=== PATIENT | female | born 1945 | race Caucasian/White ===

== ENCOUNTER → 2017-11-10 10:14 | Outpatient (POV) | payer MEDICARE, SELFPAY ==
[2017-11-10 10:26] VITALS: BP 164/58; PULSE 61; RESP 20; TEMP 36.3; BMI 20.7
--- NOTE | 2017-11-10 11:21 | HMH.PAINSOAP ---
[facility] Pain Management SOAP Note Subjective:: Patient is a pleasant 72-year-old white female who presents today as a follow-up of her low back pain. She has low back pain secondary to degenerative disc disease of the lumbar spine and lumbar radiculopathy. She also has rheumatoid arthritis. Patient currently on Plavix long-term due to history of [place]. Patient unable to come off this for injective therapy. Patient is doing well on her current regimen of [place] 7.5 mg 1 4 times daily. She states that she has 80% relief from her medication. She was unable to take her diclofenac due to stomach issues. Patient currently taking MiraLAX daily in order to help with constipation. Denies any other side effects including respiratory depression and sleepiness. Patient's last urine drug screen was appropriate. Patient will go for urine drug screen today. Patient's Charleen #[id number] reviewed and appropriate. Objective:: Physical Exam General: Alert and oriented x3, no acute distress, pleasant and cooperative, on room air Lungs: Resps E/U, Symmetrical chest expansion Musculoskeletal: Flexion and extension of lumbar spine somewhat guarded secondary to pain, deep tendon reflexes normal, strength in upper and lower extremities [5/5], slightly antalgic gait noted Neurological: speech clear, strike out machine operator equal, no gross sensory deficits Assessment:: degenerative disc disease lumbar spine, lumbar radiculopathy, multi-joint pain with arthritis Plan:: At this time we will continue her [place] 7.5 mg 1 4 times daily due to the efficacy and lack of side effects. We will give her 2 months prescriptions. I spoke to Dr. Medina in regards to this and he agrees. Kaspar #[id number] reviewed and appropriate patient will forego her urine drug screen today. I also believe it would be advantageous for the patient to have a back brace. I will order her lumbar back brace for support. I believe that this may increase her ability to do ADLs and her functionality. Follow-up with this patient in 3 months Patient has been prescribed a controlled substance after being counseled on the medication, medication safety, and possible side effects. CHARLEEN report has been obtained and reviewed prior to prescription and found to be appropriate. Opioid contract was reviewed and signed by the patient, and that they have agreed to all of the terms set forth by our compliance program. This note was dictated using voice recognition software and may contain errors and omissions
--- NOTE | 2017-11-10 11:25 | P.CONS_ITS ---
[facility] Pain Management SOAP Note Subjective:: Patient is a pleasant 72-year-old white female who presents today as a follow- up of her low back pain. She has low back pain secondary to degenerative disc disease of the lumbar spine and lumbar radiculopathy. She also has rheumatoid arthritis. Patient currently on Plavix long-term due to history of [place]. Patient unable to come off this for injective therapy. Patient is doing well on her current regimen of [place] 7.5 mg 1 4 times daily. She states that she has 80% relief from her medication. She was unable to take her diclofenac due to stomach issues. Patient currently taking MiraLAX daily in order to help with constipation. Denies any other side effects including respiratory depression and sleepiness. Patient's last urine drug screen was appropriate. Patient will go for urine drug screen today. Patient's Charleen #[id number] reviewed and appropriate. Objective:: Physical Exam General: Alert and oriented x3, no acute distress, pleasant and cooperative, on room air Lungs: Resps E/U, Symmetrical chest expansion Musculoskeletal: Flexion and extension of lumbar spine somewhat guarded secondary to pain, deep tendon reflexes normal, strength in upper and lower extremities [5/5], slightly antalgic gait noted Neurological: speech clear, car tester equal, no gross sensory deficits Assessment:: degenerative disc disease lumbar spine, lumbar radiculopathy, multi-joint pain with arthritis Plan:: At this time we will continue her [place] 7.5 mg 1 4 times daily due to the efficacy and lack of side effects. We will give her 2 months prescriptions. I spoke to Dr. Medina in regards to this and he agrees. Kaspar #[id number] reviewed and appropriate patient will forego her urine drug screen today. I also believe it would be advantageous for the patient to have a back brace. I will order her lumbar back brace for support. I believe that this may increase her ability to do ADLs and her functionality. Follow-up with this patient in 3 months Patient has been prescribed a controlled substance after being counseled on the medication, medication safety, and possible side effects. CHARLEEN report has been obtained and reviewed prior to prescription and found to be appropriate. Opioid contract was reviewed and signed by the patient, and that they have agreed to all of the terms set forth by our compliance program. This note was dictated using voice recognition software and may contain errors and omissions
[2017-11-10 11:36] LABS: Amphetamine/Metha Screen,Urine Negative ng/mL (<1000); Barbiturates Screen,Urine Negative ng/mL (<200); Benzodiazepines Screen,Urine Negative ng/mL (200); Cannabinoid Screen,Urine Negative ng/mL (<50); Cocaine Screen,Urine Negative ng/g (<300); Methadone Screen,Urine Negative ng/mL (<300); Opiate Screen,Urine Positive ng/mL (<300); Phencyclidine Screen,Urine Negative ng/mL (<25)
[2017-11-14 12:17] LABS: Codeine Negative (Cutoff=100); Hydrocodone Positive (.); Hydromorphone Positive (.); Morphine Negative (Cutoff=100)
[2017-11-14 17:19] LABS: Opiates Positive (.)
== END ==
PROVIDERS: Family Provider Family Medicine; PCP Family Medicine; Visit Provider Clinical Nurse Specialist Family Health
DX: M54.16 Radiculopathy, lumbar region (principal); Z79.899 Other long term (current) drug therapy
CPT/HCPCS: 99212; 80305; 80361; 80365; G0480

== ENCOUNTER → 2018-02-02 08:34 | Outpatient (POV) | payer MEDICARE, SELFPAY ==
[2018-02-02 09:07] VITALS: BP 131/39; PULSE 56; RESP 18; TEMP 36.7; O2SAT 98; BMI 20.2
--- NOTE | 2018-02-02 09:37 | HMH.PAINSOAP ---
[facility] Pain Management SOAP Note Subjective:: This patient is a pleasant 72-year-old white female who presents today for follow-up for her low back pain. We are treating her for pain secondary to degenerative disc disease of lumbar spine and lumbar radiculopathy. Patient also has rheumatoid arthritis. Patient states she is unable to come off her Plavix for injectable therapies. Patient is currently being medically managed with [place] 7.5 mg p.o. 4 times daily. She states she gets 70-80% relief from her medication. She denies any side effects. Patient is unable to take NSAIDs due to stomach issues. Patient's CHARLEEN reviewed #[id number]. Patient's UDS has been appropriate in the past. She was utilizing a back brace however she states it did not help and she actually had increased leg weakness. ROS General: no recent weight change, no fever, no sleep disturbances Respiratory: no cough, no shortness of air, no recurring pulmonary infections Cardiovascular/Peripheral Vascular: No chest pain, No palpitations, no edema, no shortness of breath. Gastrointestinal: no incontinence, normal bowel movements reported Genitourinary: no incontinence Musculoskeletal: Back pain, leg pain worse on the right Psychiatric: normal mood/ affect, [denies depression], [denies anxiety] Neurological: [denies weakness in extremities], [denies balance issues] Objective:: Physical Exam General: Alert and oriented x3, no acute distress, pleasant and cooperative, [on room air] Lungs: Resps E/U, Symmetrical chest expansion, Eyes: PERRL Musculoskeletal: Flexion and extension of lumbar spine somewhat guarded secondary to pain, deep tendon reflexes normal, strength in upper and lower extremities [5/5], slightly antalgic gait noted Neurological: speech clear, mr teacher equal, no gross sensory deficits Assessment:: Degenerative disc disease of lumbar spine with lumbar radiculopathy, multi-joint pain with arthritis Plan:: At this time we will refill her [place] 7.5 mg p.o. 4 times daily we will give HER-2 months worth of prescriptions. Patient can pick up driver her third month in the interim. Patient will follow-up in [address] Medina has reviewed this chart and agrees with this plan of care. Patient's Charleen and urine drug screen both reviewed. Patient has been prescribed a controlled substance after being counseled on the medication, medication safety, and possible side effects. CHARLEEN report has been obtained and reviewed prior to prescription and found to be appropriate. Opioid contract was reviewed and signed by the patient, and that they have agreed to all of the terms set forth by our compliance program. This note was dictated using voice recognition software and may contain errors or omissions
--- NOTE | 2018-02-02 09:40 | P.CONS_ITS ---
[facility] Pain Management SOAP Note Subjective:: This patient is a pleasant 72-year-old white female who presents today for follow-up for her low back pain. We are treating her for pain secondary to degenerative disc disease of lumbar spine and lumbar radiculopathy. Patient also has rheumatoid arthritis. Patient states she is unable to come off her Plavix for injectable therapies. Patient is currently being medically managed with [place] 7.5 mg p.o. 4 times daily. She states she gets 70-80% relief from her medication. She denies any side effects. Patient is unable to take NSAIDs due to stomach issues. Patient's CHARLEEN reviewed #[id number]. Patient's UDS has been appropriate in the past. She was utilizing a back brace however she states it did not help and she actually had increased leg weakness. ROS General: no recent weight change, no fever, no sleep disturbances Respiratory: no cough, no shortness of air, no recurring pulmonary infections Cardiovascular/Peripheral Vascular: No chest pain, No palpitations, no edema, no shortness of breath. Gastrointestinal: no incontinence, normal bowel movements reported Genitourinary: no incontinence Musculoskeletal: Back pain, leg pain worse on the right Psychiatric: normal mood/ affect, [denies depression], [denies anxiety] Neurological: [denies weakness in extremities], [denies balance issues] Objective:: Physical Exam General: Alert and oriented x3, no acute distress, pleasant and cooperative, [ on room air] Lungs: Resps E/U, Symmetrical chest expansion, Eyes: PERRL Musculoskeletal: Flexion and extension of lumbar spine somewhat guarded secondary to pain, deep tendon reflexes normal, strength in upper and lower extremities [5/5], slightly antalgic gait noted Neurological: speech clear, cart attendant equal, no gross sensory deficits Assessment:: Degenerative disc disease of lumbar spine with lumbar radiculopathy, multi- joint pain with arthritis Plan:: At this time we will refill her [place] 7.5 mg p.o. 4 times daily we will give HER -2 months worth of prescriptions. Patient can turkey picker her third month in the interim. Patient will follow-up in [address] Medina has reviewed this chart and agrees with this plan of care. Patient's Charleen and urine drug screen both reviewed. Patient has been prescribed a controlled substance after being counseled on the medication, medication safety, and possible side effects. CHARLEEN report has been obtained and reviewed prior to prescription and found to be appropriate. Opioid contract was reviewed and signed by the patient, and that they have agreed to all of the terms set forth by our compliance program. This note was dictated using voice recognition software and may contain errors or omissions
--- NOTE | 2018-04-10 14:44 | PC.PHONENOTE ---
pt came and picked up her prescription refill on this day, 04/10/18 @1430. Pt stated she had shoulder surgery on 03/13/[address] Desai from [facility]. Dr. Desai wrote her a prescription for [place] . Pt stated she does not plan on filling this prescription. For her pain relief after surgery she took what Dr. Medina prescribed, but she cut one on her pills in half and took an extra half dose. She stated she would only be a couple days short of her pain medicine if Dr. Medina office called her for a pill count.
== END ==
PROVIDERS: Family Provider Family Medicine; PCP Family Medicine; Visit Provider Clinical Nurse Specialist Family Health
DX: M54.16 Radiculopathy, lumbar region (principal)
CPT/HCPCS: 99212

== ENCOUNTER → 2018-04-10 14:41 | Outpatient (CLI) | payer MEDICARE, SELFPAY ==
[2018-04-10 15:44] LABS: Amphetamine/Metha Screen,Urine Negative ng/mL (<1000); Barbiturates Screen,Urine Negative ng/mL (<200); Benzodiazepines Screen,Urine Negative ng/mL (<200); Cannabinoid Screen,Urine Negative ng/mL (<50); Cocaine Screen,Urine Negative ng/mL (<300); Methadone Screen,Urine Negative ng/mL (<300); Opiate Screen,Urine Positive ng/mL (<300); Phencyclidine Screen,Urine Negative ng/mL (<25)
== END ==
PROVIDERS: Visit Provider Anesthesiology
DX: Z79.899 Other long term (current) drug therapy (principal)
CPT/HCPCS: 80305; 80361; 80365; G0480

== ENCOUNTER → 2018-05-04 09:01 | Outpatient (POV) | payer MEDICARE, SELFPAY ==
[2018-05-04 09:22] VITALS: BP 115/34; PULSE 56; RESP 18; O2SAT 98; BMI 19.1
--- NOTE | 2018-05-04 09:38 | HMH.PAINSOAP ---
[facility] Pain Management SOAP Note Subjective:: She is a pleasant 72-year-old white female who presents today for follow-up. Patient currently rates her pain a 6 out of 10 in her low back however she states this increased due to her erica. We are treating the patient for pain secondary to degenerative disc disease lumbar spine with lumbar radiculopathy. Patient also has rheumatoid arthritis. Patient is unable to come off her Plavix for injectable therapies. We are currently medically managed here with [place] 7.5 mg 1 p.o. 4 times daily. Patient states it does not last as long as she is having difficulty sleeping. Patient Kaspar #[phone] reviewed and appropriate. Patient's UDS has been appropriate. Patient has had a recent pill count which was appropriate. Patient is unable to take NSAIDs due to stomach issues. ROS General: no recent weight change, no fever, no sleep disturbances Respiratory: no cough, no shortness of air, no recurring pulmonary infections Cardiovascular/Peripheral Vascular: No chest pain, No palpitations, no edema, no shortness of breath. Gastrointestinal: no incontinence, normal bowel movements reported Genitourinary: no incontinence Musculoskeletal: Back pain, leg pain Psychiatric: normal mood/ affect Neurological: [denies weakness in extremities], [denies balance issues] Objective:: Physical Exam General: Alert and oriented x3, no acute distress, pleasant and cooperative, [on room air] Lungs: Resps E/U, Symmetrical chest expansion, Eyes: PERRL Musculoskeletal: Flexion and extension of lumbar spine somewhat guarded secondary to pain, deep tendon reflexes normal, strength in upper and lower extremities [5/5], slightly antalgic gait noted Neurological: speech clear, flight tower dispatcher equal, no gross sensory deficits Assessment:: Generative disc disease lumbar spine with lumbar radiculopathy, multi-joint with arthritis Plan:: We will refill the patient's [place] 7.5 mg 1 p.o. 4 times daily and give HER-2 months worth of prescriptions. Patient can cotton picker her third month in the interim. Patient's UDS and catheter has been reviewed and appropriate. We will start her on gabapentin 300 mg [address] Medina has reviewed this chart and agrees with this plan of care. Patient has been prescribed a controlled substance after being counseled on the medication, medication safety, and possible side effects. CHARLEEN report has been obtained and reviewed prior to prescription and found to be appropriate. Opioid contract was reviewed and signed by the patient, and that they have agreed to all of the terms set forth by our compliance program. This note was dictated using voice recognition software and may contain errors or omissions
--- NOTE | 2018-05-04 09:44 | P.CONS_ITS ---
[facility] Pain Management SOAP Note Subjective:: She is a pleasant 72-year-old white female who presents today for follow-up. Patient currently rates her pain a 6 out of 10 in her low back however she states this increased due to her erica. We are treating the patient for pain secondary to degenerative disc disease lumbar spine with lumbar radiculopathy. Patient also has rheumatoid arthritis. Patient is unable to come off her Plavix for injectable therapies. We are currently medically managed here with [place] 7.5 mg 1 p.o. 4 times daily. Patient states it does not last as long as she is having difficulty sleeping. Patient Kaspar #[phone] reviewed and appropriate. Patient's UDS has been appropriate. Patient has had a recent pill count which was appropriate. Patient is unable to take NSAIDs due to stomach issues. ROS General: no recent weight change, no fever, no sleep disturbances Respiratory: no cough, no shortness of air, no recurring pulmonary infections Cardiovascular/Peripheral Vascular: No chest pain, No palpitations, no edema, no shortness of breath. Gastrointestinal: no incontinence, normal bowel movements reported Genitourinary: no incontinence Musculoskeletal: Back pain, leg pain Psychiatric: normal mood/ affect Neurological: [denies weakness in extremities], [denies balance issues] Objective:: Physical Exam General: Alert and oriented x3, no acute distress, pleasant and cooperative, [ on room air] Lungs: Resps E/U, Symmetrical chest expansion, Eyes: PERRL Musculoskeletal: Flexion and extension of lumbar spine somewhat guarded secondary to pain, deep tendon reflexes normal, strength in upper and lower extremities [5/5], slightly antalgic gait noted Neurological: speech clear, wireline supervisor equal, no gross sensory deficits Assessment:: Generative disc disease lumbar spine with lumbar radiculopathy, multi-joint with arthritis Plan:: We will refill the patient's [place] 7.5 mg 1 p.o. 4 times daily and give HER-2 months worth of prescriptions. Patient can orange picking supervisor her third month in the interim. Patient's UDS and catheter has been reviewed and appropriate. We will start her on gabapentin 300 mg [address] Medina has reviewed this chart and agrees with this plan of care. Patient has been prescribed a controlled substance after being counseled on the medication, medication safety, and possible side effects. CHARLEEN report has been obtained and reviewed prior to prescription and found to be appropriate. Opioid contract was reviewed and signed by the patient, and that they have agreed to all of the terms set forth by our compliance program. This note was dictated using voice recognition software and may contain errors or omissions
== END ==
PROVIDERS: Family Provider Family Medicine; PCP Family Medicine; Visit Provider Clinical Nurse Specialist Family Health
DX: M54.16 Radiculopathy, lumbar region (principal)
CPT/HCPCS: 99212

== ENCOUNTER → 2018-08-03 09:04 | Outpatient (POV) | payer MEDICARE, SELFPAY ==
--- NOTE | 2018-08-03 09:25 | HMH.PAINSOAP ---
[facility] Pain Management SOAP Note Subjective:: Is a pleasant 72-year-old white female who presents today for follow-up and medication list. Patient currently rates her pain an 8 of 10 mostly in her chest. Patient states that she has had a break in her breastbone . Patient is heading to the ER after this. Patient is being treated in our clinic for secondary to degenerative disc disease lumbar spine with lumbar radiculopathy and rheumatoid I disc patient is unable to come off her Plavix for injectable therapies. We are currently medically managing her with [place] 7.5 mg 1 p.o. 4 times a day along with gabapentin grams at nighttime. Patient is also having some muscle spasms and would like to try some Zanaflex. Patient denies any side effects the medication. Patient's CHARLEEN [id number] reviewed and appropriate. Patient's UDS has been appropriate in the past. Patient is unable to take NSAIDs due to stomach issues. ROS General: no recent weight change, no fever, no sleep disturbances Respiratory: no cough, no shortness of air, no recurring pulmonary infections Cardiovascular/Peripheral Vascular: No chest pain, No palpitations, no edema, no shortness of breath. Gastrointestinal: no incontinence, normal bowel movements reported Genitourinary: no incontinence Musculoskeletal: Back pain, leg pain Psychiatric: normal mood/ affect Neurological: [denies weakness in extremities], [denies balance issues] Objective:: Physical Exam General: Alert and oriented x3, no acute distress, pleasant and cooperative, [on room air] Lungs: Resps E/U, Symmetrical chest expansion, Eyes: PERRL Musculoskeletal: Flexion and extension of lumbar spine somewhat guarded secondary to pain, deep tendon reflexes normal, strength in upper and lower extremities [5/5], slightly antalgic gait noted Neurological: speech clear, instructional technology facilitator equal, no gross sensory deficits Assessment:: Degenerative disc disease lumbar spine with lumbar radiculopathy Plan:: We will refill [place] 7.5 mg 1 p.o. 4 times daily. Patient will be given to prescriptions. Patient can warehouse order picker her third month in the interim. At this time she will have a urine drug screen. Patient is doing well on her gabapentin we will refill this as well. We will start her on Zanaflex 2 mg 3 times daily as needed for her muscle spasms. Dr. Medina has reviewed this chart and agrees with this plan of care. Patient has been prescribed a controlled substance after being counseled on the medication, medication safety, and possible side effects. CHARLEEN report has been obtained and reviewed prior to prescription and found to be appropriate. Opioid contract was reviewed and signed by the patient, and that they have agreed to all of the terms set forth by our compliance program. This note was dictated using voice recognition software and may contain errors or omissions
--- NOTE | 2018-08-03 09:28 | P.CONS_ITS ---
[facility] Pain Management SOAP Note Subjective:: Is a pleasant 72-year-old white female who presents today for follow-up and medication list. Patient currently rates her pain an 8 of 10 mostly in her chest. Patient states that she has had a break in her breastbone . Patient is heading to the ER after this. Patient is being treated in our clinic for secondary to degenerative disc disease lumbar spine with lumbar radiculopathy and rheumatoid I disc patient is unable to come off her Plavix for injectable therapies. We are currently medically managing her with [place] 7.5 mg 1 p.o. 4 times a day along with gabapentin grams at nighttime. Patient is also having some muscle spasms and would like to try some Zanaflex. Patient denies any side effects the medication. Patient's CHARLEEN [id number] reviewed and appropriate. Patient's UDS has been appropriate in the past. Patient is unable to take NSAIDs due to stomach issues. ROS General: no recent weight change, no fever, no sleep disturbances Respiratory: no cough, no shortness of air, no recurring pulmonary infections Cardiovascular/Peripheral Vascular: No chest pain, No palpitations, no edema, no shortness of breath. Gastrointestinal: no incontinence, normal bowel movements reported Genitourinary: no incontinence Musculoskeletal: Back pain, leg pain Psychiatric: normal mood/ affect Neurological: [denies weakness in extremities], [denies balance issues] Objective:: Physical Exam General: Alert and oriented x3, no acute distress, pleasant and cooperative, [on room air] Lungs: Resps E/U, Symmetrical chest expansion, Eyes: PERRL Musculoskeletal: Flexion and extension of lumbar spine somewhat guarded secondary to pain, deep tendon reflexes normal, strength in upper and lower extremities [5/5], slightly antalgic gait noted Neurological: speech clear, weight clerk equal, no gross sensory deficits Assessment:: Degenerative disc disease lumbar spine with lumbar radiculopathy Plan:: We will refill [place] 7.5 mg 1 p.o. 4 times daily. Patient will be given to prescriptions. Patient can milk pickup driver her third month in the interim. At this time she will have a urine drug screen. Patient is doing well on her gabapentin we will refill this as well. We will start her on Zanaflex 2 mg 3 times daily as needed for her muscle spasms. Dr. Medina has reviewed this chart and agrees with this plan of care. Patient has been prescribed a controlled substance after being counseled on the medication, medication safety, and possible side effects. CHARLEEN report has been obtained and reviewed prior to prescription and found to be appropriate. Opioid contract was reviewed and signed by the patient, and that they have agreed to all of the terms set forth by our compliance program. This note was dictated using voice recognition software and may contain errors or omissions
[2018-08-03 12:03] VITALS: BP 148/55; PULSE 55; RESP 18; O2SAT 98; BMI 16.2
== END ==
PROVIDERS: PCP Family Medicine; Visit Provider Clinical Nurse Specialist Family Health
DX: M51.16 Intervertebral disc disorders with radiculopathy, lumbar region (principal)
CPT/HCPCS: 99213

== ENCOUNTER → 2018-09-24 13:30 | Outpatient (CLI) | payer MEDICARE, SELFPAY ==
[2018-09-24 14:54] LABS: Amphetamine/Metha Screen,Urine Negative ng/mL (<1000); Barbiturates Screen,Urine Negative ng/mL (<200); Benzodiazepines Screen,Urine Negative ng/mL (<200); Cannabinoid Screen,Urine Negative ng/mL (<50); Cocaine Screen,Urine Negative ng/mL (<300); Methadone Screen,Urine Negative ng/mL (<300); Opiate Screen,Urine Positive ng/mL (<300); Phencyclidine Screen,Urine Negative ng/mL (<25)
[2018-10-02 02:08] LABS: Codeine Negative (Cutoff=100); Hydrocodone Positive (.); Hydromorphone Positive (.); Morphine Negative (Cutoff=100)
[2018-10-03 21:48] LABS: Opiates Positive (.)
== END ==
PROVIDERS: Visit Provider Clinical Nurse Specialist Family Health
DX: Z79.899 Other long term (current) drug therapy (principal)
CPT/HCPCS: 80305; 80361; 80365; G0480

== ENCOUNTER → 2018-10-26 09:38 | Outpatient (POV) | payer MEDICARE, SELFPAY ==
[2018-10-26 09:40] VITALS: BP 146/62; PULSE 58; RESP 18; O2SAT 99; BMI 19.5
--- NOTE | 2018-10-26 10:00 | HMH.PAINSOAP ---
[facility] [place] Pain Management SOAP Note Subjective:: Is a pleasant 73-year-old white female who presents today for follow-up and medication refills. At her last visit she was sent to the ER due to chest pain. Patient had a fracture of her sternum. Patient is still healing. Patient is on Plavix and unable to do injective therapies. She is currently on [place] 7.5 mg 1 p.o. nightly. Patient did receive Percocet from her primary care at times to help with the increased pain of breathing. Charleen reviewed and appropriate. UDS has been appropriate. Patient and I discussed moving forward with her pain. She denies any side effects or medication. ROS General: no recent weight change, no fever, no sleep disturbances Respiratory: no cough, no shortness of air, no recurring pulmonary infections Cardiovascular/Peripheral Vascular: No chest pain, No palpitations, no edema, no shortness of breath. Gastrointestinal: no incontinence, normal bowel movements reported Genitourinary: no incontinence Musculoskeletal: Pain, leg pain, chest pain Psychiatric: normal mood/ affect Neurological: [denies weakness in extremities], [denies balance issues] Objective:: Physical Exam General: Alert and oriented x3, no acute distress, pleasant and cooperative, [on room air] Lungs: Resps E/U, Symmetrical chest expansion, Eyes: PERRL Musculoskeletal: Flexion and extension of lumbar spine somewhat guarded secondary to pain, deep tendon reflexes normal, strength in upper and lower extremities [5/5], [abnormal gait noted] Neurological: speech clear, mark up designer equal, no gross sensory deficits Assessment:: Degenerative disc disease lumbar spine with lumbar radiculopathy along with pain secondary to fracture of sternum Plan:: We will increase her [place] to 10 mg 1 p.o. 4 times daily and give her to 1 month prescription. We will follow-up with her in 1 month and reassess her symptoms at that time. She is also on gabapentin 300 mg 1 p.o. daily. Patient has been prescribed a controlled substance after being counseled on the medication, medication safety, and possible side effects. CHARLEEN report has been obtained and reviewed prior to prescription and found to be appropriate. Opioid contract was reviewed and signed by the patient, and that they have agreed to all of the terms set forth by our compliance program. Dr. Medina has reviewed this note and agrees with this plan of care. This note was dictated using voice recognition software and may contain errors or omissions
--- NOTE | 2018-10-26 10:03 | P.CONS_ITS ---
[facility] Pain Management SOAP Note Subjective:: Is a pleasant 73-year-old white female who presents today for follow-up and medication refills. At her last visit she was sent to the ER due to chest pain. Patient had a fracture of her sternum. Patient is still healing. Patient is on Plavix and unable to do injective therapies. She is currently on [place] 7.5 mg 1 p.o. nightly. Patient did receive Percocet from her primary care at times to help with the increased pain of breathing. Charleen reviewed and appropriate. UDS has been appropriate. Patient and I discussed moving forward with her pain. She denies any side effects or medication. ROS General: no recent weight change, no fever, no sleep disturbances Respiratory: no cough, no shortness of air, no recurring pulmonary infections Cardiovascular/Peripheral Vascular: No chest pain, No palpitations, no edema, no shortness of breath. Gastrointestinal: no incontinence, normal bowel movements reported Genitourinary: no incontinence Musculoskeletal: Pain, leg pain, chest pain Psychiatric: normal mood/ affect Neurological: [denies weakness in extremities], [denies balance issues] Objective:: Physical Exam General: Alert and oriented x3, no acute distress, pleasant and cooperative, [on room air] Lungs: Resps E/U, Symmetrical chest expansion, Eyes: PERRL Musculoskeletal: Flexion and extension of lumbar spine somewhat guarded secondary to pain, deep tendon reflexes normal, strength in upper and lower extremities [5/5], [abnormal gait noted] Neurological: speech clear, manufacturer's service representative equal, no gross sensory deficits Assessment:: Degenerative disc disease lumbar spine with lumbar radiculopathy along with pain secondary to fracture of sternum Plan:: We will increase her [place] to 10 mg 1 p.o. 4 times daily and give her to 1 month prescription. We will follow-up with her in 1 month and reassess her symptoms at that time. She is also on gabapentin 300 mg 1 p.o. daily. Patient has been prescribed a controlled substance after being counseled on the medication, medication safety, and possible side effects. CHARLEEN report has been obtained and reviewed prior to prescription and found to be appropriate. Opioid contract was reviewed and signed by the patient, and that they have agreed to all of the terms set forth by our compliance program. Dr. Medina has reviewed this note and agrees with this plan of care. This note was dictated using voice recognition software and may contain errors or omissions
--- NOTE | 2018-11-02 10:16 | PC.PHONENOTE ---
Rosa Maria MARCELO from Dr Andrew Segura office called to inform Dr. Medina office that Milagros Becerra came into his office with anxiety and he prescribed her with Xanax 0.25mg every 8 hours PRN with quantity of 15 with no refills.
== END ==
PROVIDERS: PCP Family Medicine; Visit Provider Clinical Nurse Specialist Family Health
DX: S22.20XD Unspecified fracture of sternum, subsequent encounter for fracture with routine healing; M51.16 Intervertebral disc disorders with radiculopathy, lumbar region
CPT/HCPCS: 99213

== ENCOUNTER → 2018-12-01 10:41 | Outpatient (POV) | payer MEDICARE, SELFPAY ==
[2018-12-01 10:45] VITALS: BP 137/85; PULSE 66; RESP 18; O2SAT 98; BMI 19.1
--- NOTE | 2018-12-01 11:41 | HMH.PAINSOAP ---
[facility] Pain Management SOAP Note Subjective:: Patient is a pleasant 73-year-old white female who presents today for medication refills. Patient is doing well on her [place] 10 mg 1 p.o. 4 times daily. Patient has had a fracture of her sternum and she is still having difficulty in regards to healing process. Patient is currently on Plavix and is unable to do injective therapy. Patient's UDS has been appropriate. Charleen reviewed and appropriate. Patient states her medication helps her up to 80%. She denies side effects from medication. ROS General: no recent weight change, no fever, no sleep disturbances Respiratory: no cough, no shortness of air, no recurring pulmonary infections Cardiovascular/Peripheral Vascular: No chest pain, No palpitations, no edema, no shortness of breath. Gastrointestinal: no incontinence, normal bowel movements reported Genitourinary: no incontinence Musculoskeletal: Back pain, sternum pain Psychiatric: normal mood/ affect Neurological: [denies weakness in extremities], [denies balance issues] Objective:: Physical Exam General: Alert and oriented x3, no acute distress, pleasant and cooperative, [on room air] Lungs: Resps E/U, Symmetrical chest expansion, Eyes: PERRL Musculoskeletal: Flexion and extension of lumbar spine somewhat guarded secondary to pain, deep tendon reflexes normal, strength in upper and lower extremities [5/5], [abnormal gait noted] Neurological: speech clear, adjunct instructor equal, no gross sensory deficits Assessment:: Degenerative disc disease lumbar spine with lumbar radiculopathy and pain secondary to fracture of sternum Plan:: We will refill the patient's [place] 10 mg 1 p.o. 4 times daily and give her 2 months worth of medicine she can pick her third month up in the interim. Patient is continuing her gabapentin 300 mg 1 p.o. daily. To call the office if she has any issues prior to her next appointment. Patient has been prescribed a controlled substance after being counseled on the medication, medication safety, and possible side effects. CHARLEEN report has been obtained and reviewed prior to prescription and found to be appropriate. Opioid contract was reviewed and signed by the patient, and that they have agreed to all of the terms set forth by our compliance program. Dr. Medina has reviewed this note and agrees with this plan of care. This note was dictated using voice recognition software and may contain errors or omissions
== END ==
PROVIDERS: PCP Family Medicine; Visit Provider Clinical Nurse Specialist Family Health
DX: M51.16 Intervertebral disc disorders with radiculopathy, lumbar region (principal); M84.48XA Pathological fracture, other site, initial encounter for fracture
CPT/HCPCS: 99213

== ENCOUNTER → 2019-02-03 11:55 | Outpatient (CLI) | payer MEDICARE, SELFPAY ==
[2019-02-03 16:11] LABS: Amphetamine/Metha Screen,Urine Negative ng/mL (<1000); Barbiturates Screen,Urine Negative ng/mL (<200); Benzodiazepines Screen,Urine Positive ng/mL (<200); Cannabinoid Screen,Urine Negative ng/mL (<50); Cocaine Screen,Urine Negative ng/mL (<300); Methadone Screen,Urine Negative ng/mL (<300); Opiate Screen,Urine Positive ng/mL (<300); Phencyclidine Screen,Urine Negative ng/mL (<25)
[2019-02-09 15:09] LABS: Codeine Negative (Cutoff=100); Hydrocodone Positive (.); Hydromorphone Positive (.); Morphine Negative (Cutoff=100)
[2019-02-10 06:52] LABS: Opiates Positive (.)
== END ==
PROVIDERS: Visit Provider Clinical Nurse Specialist Family Health
DX: Z79.899 Other long term (current) drug therapy (principal)
CPT/HCPCS: 80305; 80361; 80365; G0480

== ENCOUNTER → 2019-03-01 11:05 | Outpatient (POV) | payer MEDICARE, SELFPAY ==
--- NOTE | 2019-03-01 11:21 | HMH.PAINSOAP ---
[facility] Pain Management SOAP Note Subjective:: She is a pleasant 73-year-old white female who presents today for medication refills. The patient has had a fracture of her sternum and has low back pain. She reports that she was hospitalized a little over a month ago for respiratory failure. At that time, she was not given any of her pain medication, and states that she had increased back pain due to decreased activity and the hospital bed. She also reports a new finding of lung, adrenal, and thyroid nodules. Her primary care is scheduling her for an ultrasound. Patient does rate her pain a 7 out of 10 today. She says that the [place] is starting to help her again now that she is back on her home regimen. The patient takes [place] 10 mg 1 p.o. 4 times daily. She does report this to be up to 80% effective most of the time. She denies any side effects from the medication. ROS General: no recent weight change, no fever, no sleep disturbances Respiratory: no cough, no shortness of air, no recurring pulmonary infections Cardiovascular/Peripheral Vascular: No chest pain, No palpitations, no edema, no shortness of breath. Gastrointestinal: no incontinence, normal bowel movements reported Genitourinary: no incontinence Musculoskeletal: Back pain Psychiatric: normal mood/affect, [denies anxiety] Neurological: [denies weakness in extremities], [denies balance issues] Objective:: Physical Exam General: Alert and oriented x3, no acute distress, pleasant and cooperative, [on room air] Lungs: Resps E/U, Symmetrical chest expansion, Eyes: PERRL Musculoskeletal: Flexion and extension of lumbar spine somewhat guarded secondary to pain, deep tendon reflexes normal, strength in upper and lower extremities [5/5], slightly antalgic gait noted, sternal tenderness noted Neurological: speech clear, industrial equipment wirer equal, no gross sensory deficits Assessment:: Degenerative disc disease lumbar spine with lumbar radiculopathy and pain secondary to fracture of sternum Plan:: We will follow up with the patient in three months. We will refill the patient's [place] 10 mg 1 p.o. 4 times daily and give her 2 months worth of medicine. She can also grape picker her third month in the interim. The patient is also continuing her gabapentin 300 mg 1 p.o. daily. Patient has been prescribed a controlled substance after being counseled on the medication, medication safety, and possible side effects. CHARLEEN report has been obtained and reviewed prior to prescription and found to be appropriate. Opioid contract was reviewed and signed by the patient, and that they have agreed to all of the terms set forth by our compliance program. Dr. Medina has reviewed this note and agrees with this plan of care. This note was dictated using voice recognition software and may contain errors or omissions
[2019-03-01 11:22] VITALS: BP 112/80; PULSE 60; RESP 18; O2SAT 98; BMI 15.9
--- NOTE | 2019-03-01 11:26 | P.CONS_ITS ---
[facility] Pain Management SOAP Note Subjective:: She is a pleasant 73-year-old white female who presents today for medication refills. The patient has had a fracture of her sternum and has low back pain. She reports that she was hospitalized a little over a month ago for respiratory failure. At that time, she was not given any of her pain medication, and states that she had increased back pain due to decreased activity and the hospital bed. She also reports a new finding of lung, adrenal, and thyroid nodules. Her primary care is scheduling her for an ultrasound. Patient does rate her pain a 7 out of 10 today. She says that the [place] is starting to help her again now that she is back on her home regimen. The patient takes [place] 10 mg 1 p.o. 4 times daily. She does report this to be up to 80% effective most of the time. She denies any side effects from the medication. ROS General: no recent weight change, no fever, no sleep disturbances Respiratory: no cough, no shortness of air, no recurring pulmonary infections Cardiovascular/Peripheral Vascular: No chest pain, No palpitations, no edema, no shortness of breath. Gastrointestinal: no incontinence, normal bowel movements reported Genitourinary: no incontinence Musculoskeletal: Back pain Psychiatric: normal mood/affect, [denies anxiety] Neurological: [denies weakness in extremities], [denies balance issues] Objective:: Physical Exam General: Alert and oriented x3, no acute distress, pleasant and cooperative, [on room air] Lungs: Resps E/U, Symmetrical chest expansion, Eyes: PERRL Musculoskeletal: Flexion and extension of lumbar spine somewhat guarded secondary to pain, deep tendon reflexes normal, strength in upper and lower extremities [5/5], slightly antalgic gait noted, sternal tenderness noted Neurological: speech clear, visual merchandising coordinator equal, no gross sensory deficits Assessment:: Degenerative disc disease lumbar spine with lumbar radiculopathy and pain secondary to fracture of sternum Plan:: We will follow up with the patient in three months. We will refill the p athalima's [place] 10 mg 1 p.o. 4 times daily and give her 2 months worth of medicine. She can also grain picker her third month in the interim. The patient is also continuing her gabapentin 300 mg 1 p.o. daily. Patient has been prescribed a controlled substance after being counseled on the medication, medication safety, and possible side effects. CHARLEEN report has been obtained and reviewed prior to prescription and found to be appropriate. Opioid contract was reviewed and signed by the patient, and that they have agreed to all of the terms set forth by our compliance program. Dr. Medina has reviewed this note and agrees with this plan of care. This note was dictated using voice recognition software and may contain errors or omissions
== END ==
PROVIDERS: PCP Family Medicine; Visit Provider Clinical Nurse Specialist Family Health
DX: M51.16 Intervertebral disc disorders with radiculopathy, lumbar region (principal); M84.48XS Pathological fracture, other site, sequela
CPT/HCPCS: 99212

== ENCOUNTER → 2019-05-24 10:40 | Outpatient (POV) | payer MEDICARE, SELFPAY ==
--- NOTE | 2019-05-24 11:22 | HMH.PAINSOAP ---
[facility] Pain Management SOAP Note Subjective:: She is a pleasant 33-year-old white female who presents today for medication refills. The patient has had a fracture of her sternum and also has low back pain. She reports that she is doing better however she is still having test done on lung/adrenal/thyroid nodules. Patient's pain today is a 7 out of 10. She is currently on [place] 10 mg 1 p.o. 4 times daily. She states that this helps up to 80%. Charleen #[id number] reviewed and appropriate. Urine drug screens have been appropriate. ROS General: no recent weight change, no fever, no sleep disturbances Respiratory: no cough, no shortness of air, no recurring pulmonary infections Cardiovascular/Peripheral Vascular: No chest pain, No palpitations, no edema, no shortness of breath. Gastrointestinal: no incontinence, normal bowel movements reported Genitourinary: no incontinence Musculoskeletal: Sternal pain, back pain, leg pain Psychiatric: normal mood/ affect, Neurological: [denies weakness in extremities], [denies balance issues] Objective:: Physical Exam General: Alert and oriented x3, no acute distress, pleasant and cooperative, [on room air] Lungs: Resps E/U, Symmetrical chest expansion, Eyes: PERRL Musculoskeletal: Flexion and extension of thoracic and lumbar spine somewhat guarded secondary to pain, deep tendon reflexes normal, strength in upper and lower extremities [5/5], [abnormal gait noted] Neurological: speech clear, retail salesworker equal, no gross sensory deficits Assessment:: Degenerative disc disease lumbar spine with lumbar radiculopathy and pain secondary to fracture of sternum Plan:: We will refill her [place] 10 mg 1 p.o. 4 times daily give her 2 months worth of medication we will see her back in 2 months reassess her symptoms at that time. Patient did have a noted different physician listed on her Charleen however upon calling the pharmacy it was determined to be a Misprint. We will see her back in 3 months patient is able to picker and packer her third month in the interim. Patient has been prescribed a controlled substance after being counseled on the medication, medication safety, and possible side effects. CHARLEEN report has been obtained and reviewed prior to prescription and found to be appropriate. Opioid contract was reviewed and signed by the patient, and that they have agreed to all of the terms set forth by our compliance program. Dr. Medina has reviewed this note and agrees with this plan of care. This note was dictated using voice recognition software and may contain errors or omissions Pain Management Hx Components *Have you ever received a pneumonia vaccine?: Yes *Have you received a flu vaccine this season?: Yes - *Social History *Occupational Status:: other *Travel in the last 8 weeks: None
[2019-05-24 11:38] VITALS: BP 126/40; PULSE 53; RESP 18; O2SAT 98; BMI 17.6
== END ==
PROVIDERS: PCP Family Medicine; Visit Provider Clinical Nurse Specialist Family Health
DX: M51.16 Intervertebral disc disorders with radiculopathy, lumbar region (principal); M84.48XS Pathological fracture, other site, sequela
CPT/HCPCS: 99212

== ENCOUNTER → 2019-07-28 14:44 | Outpatient (CLI) | payer MEDICARE, SELFPAY ==
[2019-07-28 16:16] LABS: Amphetamine/Metha Screen,Urine Negative ng/mL (<1000); Barbiturates Screen,Urine Negative ng/mL (<200); Benzodiazepines Screen,Urine Positive ng/mL (<200); Cannabinoid Screen,Urine Negative ng/mL (<50); Cocaine Screen,Urine Negative ng/mL (<300); Methadone Screen,Urine Negative ng/mL (<300); Opiate Screen,Urine Positive ng/mL (<300); Phencyclidine Screen,Urine Negative ng/mL (<25)
[2019-08-05 19:10] LABS: Codeine Negative (Cutoff=100); Hydrocodone Positive (.); Hydromorphone Positive (.); Morphine Negative (Cutoff=100)
[2019-08-06 08:27] LABS: Opiates Positive (.)
== END ==
PROVIDERS: PCP Family Medicine; Visit Provider Clinical Nurse Specialist Family Health
DX: Z79.899 Other long term (current) drug therapy (principal)
CPT/HCPCS: 80305; 80361; 80365; G0480

== ENCOUNTER → 2019-08-24 09:39 | Outpatient (POV) | payer MEDICARE, SELFPAY ==
[2019-08-24 10:04] VITALS: BP 122/51; PULSE 54; RESP 18; O2SAT 98; BMI 16.5
--- NOTE | 2019-08-24 10:17 | HMH.PAINSOAP ---
[facility] Pain Management SOAP Note Subjective:: Patient is a pleasant 74-year-old white female who presents today for medication refills. Patient recently suffered a loss in her family. Patient is currently on [place] 10 mg 1 p.o. 4 times daily she is being treated for pain secondary to degenerative disc disease lumbar spine with lumbar radiculopathy. Patient is continuing to have sternal pain after a nonhealing sternal fracture. Patient's pain today is a 7 out of 10 which is her baseline. Patient denies side effects or medication. Patient had been on gabapentin in the past at nighttime and she would like to refill this. Charleen #[id number] reviewed and appropriate. Urine drug screens have been appropriate. ROS General: no recent weight change, no fever, no sleep disturbances Respiratory: no cough, no shortness of air, no recurring pulmonary infections Cardiovascular/Peripheral Vascular: No chest pain, No palpitations, no edema, no shortness of breath. Gastrointestinal: no new onset incontinence, normal bowel movements reported Genitourinary: no new onset incontinence Musculoskeletal: Back pain, leg pain, sternal pain Psychiatric: normal mood/ affect Neurological: [denies new onset weakness in extremities], [denies new onset balance issues] Objective:: Physical Exam General: Alert and oriented x3, no acute distress, pleasant and cooperative, [on room air] Lungs: Resps E/U, Symmetrical chest expansion, Eyes: PERRL Musculoskeletal: Flexion and extension of lumbar spine somewhat guarded secondary to pain, deep tendon reflexes normal, strength in upper and lower extremities [5/5], [abnormal gait noted] Neurological: speech clear, manager workers compensation equal, no gross sensory deficits Assessment:: Degenerative disc disease lumbar spine with lumbar radiculopathy, pain secondary to fracture of the sternum Plan:: We will refill the patient's [place] 10 mg 1 p.o. 4 times daily and give her 2 months worth of medication we will see her back in 2 months reassess her symptoms at that time we will restart her gabapentin 100 mg 1 p.o. nightly. Patient's been instructed to call the office if she has any issues prior to her next appointment. Patient has been prescribed a controlled substance after being counseled on the medication, medication safety, and possible side effects. CHARLEEN report has been obtained and reviewed prior to prescription and found to be appropriate. Opioid contract was reviewed and signed by the patient, and that they have agreed to all of the terms set forth by our compliance program. Dr. Medina has reviewed this note and agrees with this plan of care. This note was dictated using voice recognition software and may contain errors or omissions [facility] History I have reviewed the patient's past medical history: Yes *Have you ever received a pneumonia vaccine?: Yes *Have you received a flu vaccine this season?: Yes - *Social History *Occupational Status:: employed *Travel in the last 8 weeks: None Family Hx:: Non-contributory
== END ==
PROVIDERS: PCP Family Medicine; Visit Provider Clinical Nurse Specialist Family Health
DX: S22.20XK Unspecified fracture of sternum, subsequent encounter for fracture with nonunion (principal); M51.16 Intervertebral disc disorders with radiculopathy, lumbar region
CPT/HCPCS: 99212

== ENCOUNTER → 2019-10-25 09:34 | Outpatient (POV) | payer MEDICARE, MEDICAID, SELFPAY ==
[2019-10-25 10:14] VITALS: BP 110/48; PULSE 57; RESP 18; O2SAT 98; BMI 16.2
[2019-10-25 11:04] LABS: Amphetamine/Metha Screen,Urine Negative ng/mL (<1000); Barbiturates Screen,Urine Negative ng/mL (<200); Benzodiazepines Screen,Urine Negative ng/mL (<200); Cannabinoid Screen,Urine Negative ng/mL (<50); Cocaine Screen,Urine Negative ng/mL (<300); Methadone Screen,Urine Negative ng/mL (<300); Opiate Screen,Urine Positive ng/mL (<300); Phencyclidine Screen,Urine Negative ng/mL (<25)
--- NOTE | 2019-10-25 16:47 | HMH.PAINSOAP ---
[facility] Pain Management SOAP Note Subjective:: Patient is a pleasant 24-year-old white female who presents today for medication refills. Patient's rating her pain 8 out of 10. She is being treated with [place] 10 mg 1 p.o. 4 times a day for pain secondary to degenerative disc disease lumbar spine with lumbar radiculopathy. She is also sternal pain from a nonhealing sternal fracture. Patient's pain is slightly up however this is due to overactivity. Patient is also on gabapentin 100 mg 1 p.o. nightly. Charleen #[id number] reviewed and appropriate. Urine drug screens have been appropriate. ROS General: no recent weight change, no fever, no sleep disturbances Respiratory: no cough, no shortness of air, no recurring pulmonary infections Cardiovascular/Peripheral Vascular: No chest pain, No palpitations, no edema, no shortness of breath. Gastrointestinal: no new onset incontinence, normal bowel movements reported Genitourinary: no new onset incontinence Musculoskeletal: Back pain, leg pain Psychiatric: normal mood/ affect Neurological: [denies new onset weakness in extremities], [denies new onset balance issues] Objective:: Physical Exam General: Alert and oriented x3, no acute distress, pleasant and cooperative, [on room air] Lungs: Resps E/U, Symmetrical chest expansion, Eyes: PERRL Musculoskeletal: Flexion and extension of lumbar spine somewhat guarded secondary to pain, deep tendon reflexes normal, strength in upper and lower extremities [5/5], [abnormal gait noted] Neurological: speech clear, cigar making machine supervisor equal, no gross sensory deficits Assessment:: Degenerative disc disease lumbar spine with lumbar radiculopathy, pain secondary to sternal fracture Plan:: We will refill her [place] 10 mg 1 p.o. 4 times daily 2 months worth medication. We will see her back in 2 months reassess her symptoms at that time. We will increase her gabapentin [id number] three times a day. Patient has been prescribed a controlled substance after being counseled on the medication, medication safety, and possible side effects. CHARLEEN report has been obtained and reviewed prior to prescription and found to be appropriate. Opioid contract was reviewed and signed by the patient, and that they have agreed to all of the terms set forth by our compliance program. Dr. Medina has reviewed this note and agrees with this plan of care. This note was dictated using voice recognition software and may contain errors or omissions [facility] History I have reviewed the patient's past medical history: Yes *Have you ever received a pneumonia vaccine?: Yes *Have you received a flu vaccine this season?: Yes - *Social History *Occupational Status:: employed *Travel in the last 8 weeks: None Family Hx:: Non-contributory
[2019-10-28 14:41] LABS: Codeine Negative (Cutoff=100); Hydrocodone Positive (.); Hydromorphone Positive (.); Morphine Negative (Cutoff=100); Oxycodone (GC/MS) 234 ng/mL (Cutoff=100)
[2019-10-28 17:00] LABS: Opiates Positive (.)
== END ==
PROVIDERS: PCP Family Medicine; Visit Provider Clinical Nurse Specialist Family Health
DX: M51.16 Intervertebral disc disorders with radiculopathy, lumbar region (principal); Z79.899 Other long term (current) drug therapy; M84.48XA Pathological fracture, other site, initial encounter for fracture
CPT/HCPCS: 80305; 80361; 80365; 99212; G0480

== ENCOUNTER → 2019-12-20 10:47 | Outpatient (POV) | payer MEDICARE, MEDICAID, SELFPAY ==
[2019-12-20 12:20] VITALS: BP 133/52; PULSE 76; RESP 18; O2SAT 99; BMI 17.4
--- NOTE | 2019-12-20 12:37 | P.CONS_ITS ---
[facility] Pain Management SOAP Note Subjective:: Patient is a pleasant 74-year-old white female in today for medication refills. She rates her pain a 6 out of 10. She is cracked an additional 2 ribs. She is being treated with [place] 10 mg 1 p.o. 4 times daily and gabapentin 100 mg 1 p.o. 3 times daily patient Charleen #[id number] reviewed and appropriate. Urine drug screens have been appropriate. We will increase her gabapentin to 200 mg 3 times a day. ROS General: no recent weight change, no fever, no sleep disturbances Respiratory: no cough, no shortness of air, no recurring pulmonary infections Cardiovascular/Peripheral Vascular: No chest pain, No palpitations, no edema, no shortness of breath. Gastrointestinal: no new onset incontinence, normal bowel movements reported Genitourinary: no new onset incontinence Musculoskeletal: Back pain, rib pain Psychiatric: normal mood/ affect, [denies depression], [denies anxiety] Neurological: [denies new onset weakness in extremities], [denies new onset balance issues] Objective:: Physical Exam General: Alert and oriented x3, no acute distress, pleasant and cooperative, [on room air] Lungs: Resps E/U, Symmetrical chest expansion, Eyes: PERRL Musculoskeletal: Flexion and extension of lumbar and thoracic spine somewhat guarded secondary to pain, deep tendon reflexes normal, strength in upper and lower extremities [5/5], [abnormal gait noted] Neurological: speech clear, telecommunications analyst equal, no gross sensory deficits Assessment:: Degenerative disc disease lumbar spine with lumbar radiculopathy Plan:: Fill the patient's [place] 10 mg 1 p.o. 4 times daily and increase her gabapentin to 200 mg 1 p.o. 3 times daily. Follow-up with the patient in 3 months reassess her symptoms at that time she will be able to pharmacy picking tech interim prescriptions. She is been instructed to call the office if she has any issues prior to her next appointment. Dr. Medina has reviewed this note and agrees with this plan of care. This note was dictated using voice recognition software and may contain errors or omissions Patient has been prescribed a controlled substance after being counseled on the medication, medication safety, and possible side effects. CHARLEEN report has been obtained and reviewed prior to prescription and found to be appropriate. Opioid contract was reviewed and signed by the patient, and that they have agreed to all of the terms set forth by our compliance program. [facility] History I have reviewed the patient's past medical history: Yes *Have you ever received a pneumonia vaccine?: Yes *Have you received a flu vaccine this season?: Yes - *Social History *Occupational Status:: other *Travel in the last 8 weeks: None Family Hx:: Non-contributory
== END ==
PROVIDERS: PCP Family Medicine; Visit Provider Clinical Nurse Specialist Family Health
DX: M51.16 Intervertebral disc disorders with radiculopathy, lumbar region (principal)
CPT/HCPCS: 99212

== ENCOUNTER → 2020-03-14 09:40 | Outpatient (POV) | payer MEDICARE, MEDICAID, SELFPAY ==
[2020-03-14 10:05] VITALS: BP 128/52; PULSE 52; RESP 18; TEMP 36.6; O2SAT 99; BMI 18.5
--- NOTE | 2020-03-14 10:32 | HMH.PAINSOAP ---
[facility] Pain Management SOAP Note Subjective:: Patient is a pleasant 74-year-old white female who presents today for medication refills. She rates her pain a 6 out of 10. She is being treated with [place] 10 mg 1 p.o. 4 times daily and gabapentin 200 mg 1 p.o. 3 times daily. She would like to increase this to 300 mg 3 times daily. She does not have any side effects. We will move forward with this. Urine drug screens have been appropriate. Charleen #[id number] reviewed and appropriate. Patient recently started a new osteoporosis medication. ROS General: no recent weight change, no fever, no sleep disturbances Respiratory: no cough, no shortness of air, no recurring pulmonary infections Cardiovascular/Peripheral Vascular: No chest pain, No palpitations, no edema, no shortness of breath. Gastrointestinal: no new onset incontinence, normal bowel movements reported Genitourinary: no new onset incontinence Musculoskeletal: Back pain, leg pain, sternal pain Psychiatric: normal mood/ affect Neurological: [denies new onset weakness in extremities], [denies new onset balance issues] Objective:: Physical Exam General: Alert and oriented x3, no acute distress, pleasant and cooperative, [on room air] Lungs: Resps E/U, Symmetrical chest expansion, Eyes: PERRL Musculoskeletal: Flexion and extension of cervical and lumbar spine somewhat guarded secondary to pain, deep tendon reflexes normal, strength in upper and lower extremities [5/5], [abnormal gait noted] Neurological: speech clear, handtools repairer equal, no gross sensory deficits Assessment:: Degenerative disc disease lumbar spine lumbar radiculopathy Plan:: We will refill the patient's [place] 10 mg 1 p.o. 4 times daily will give her an increase in her gabapentin to 300 mg 1 p.o. 3 times daily. We will see her back in 3 months reassess her symptoms at that time she has been instructed to call the office if she needs to pecan picker interim prescriptions. O she is also been instructed to call the office if she has any issues prior to her next appointment. Patient has been prescribed a controlled substance after being counseled on the medication, medication safety, and possible side effects. CHARLEEN report has been obtained and reviewed prior to prescription and found to be appropriate. Opioid contract was reviewed and signed by the patient, and that they have agreed to all of the terms set forth by our compliance program. Dr. Medina has reviewed this note and agrees with this plan of care. This note was dictated using voice recognition software and may contain errors or omissions [facility] History I have reviewed the patient's past medical history: Yes *Have you ever received a pneumonia vaccine?: Yes *Have you received a flu vaccine this season?: Yes - *Social History *Occupational Status:: other *Travel in the last 8 weeks: None Family Hx:: Non-contributory
== END ==
PROVIDERS: PCP Family Medicine; Visit Provider Clinical Nurse Specialist Family Health
DX: M51.16 Intervertebral disc disorders with radiculopathy, lumbar region (principal)
CPT/HCPCS: 99212

== ENCOUNTER → 2020-06-15 09:41 | Outpatient (POV) | payer MEDICARE, MEDICAID, SELFPAY ==
[2020-06-15 09:55] VITALS: BP 118/74; PULSE 74; RESP 18; TEMP 36.7; O2SAT 97; BMI 17.4
--- NOTE | 2020-06-15 10:00 | P.CONS_ITS ---
[facility] Pain Management SOAP Note Subjective:: Patient is a 74-year-old white female who presents today for medication refills. She has been treated for low back pain with lumbar radiculopathy symptoms. Patient says she gets about 60% relief with her medication regimen. At her last visit, she was creased in her gabapentin to 300 mg 1 tablet p.o. 3 times daily. She says this has helped with her pain. She is also on [place] 10 mg 1 tablet p.o. 4 times daily. Patient's Charleen #[id number] has been reviewed and is appropriate. Her drug screens have been appropriate. Her morphine equivalent is 40. Her pain a 5 out of 10 today. Review of Systems General: No recent weight changes, no fever, no sleep disturbances Respiratory: No cough, no shortness of air, no recurring pulmonary infections Cardiovascular/peripheral vascular: No chest pain, no palpitations, no edema, no shortness of breath Gastrointestinal: No new onset incontinence, normal bowel movements reported Genitourinary: No new onset incontinence Musculoskeletal: Low back pain Psychiatric: Normal mood/affect Neurological: [Denies weakness in extremities], [denies balance issues] Objective:: Physical exam General: Alert and oriented x3, no acute distress, pleasant and cooperative, [on room air] Lungs: Respirations even and unlabored, symmetrical chest expansion Eyes: PERRL Musculoskeletal: Flexion and extension of lumbar spine somewhat guarded secondary to pain, deep tendon reflexes normal, strength in upper and lower extremities [5/5], [abnormal gait noted] Neurological: Speech clear, cool roofing installer equal, no gross sensory deficit Assessment:: Degenerative disc disease lumbar spine with lumbar radiculopathy symptoms Plan:: We will refill the patient's [place] 10 mg 1 tablet p.o. 4 times daily and gabapentin 300 mg 1 tablet p.o. 3 times daily. 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 Patient has been instructed to contact the clinic if she has any concerns before her next appointment. Patient has been prescribed a controlled substance after being counseled on the medication, medication safety, and possible side effects. CHARLEEN report has been obtained and reviewed prior to prescription and found to be appropriate. Opioid contract was reviewed and signed by the patient, and that they have agreed to all of the terms set forth by our compliance program. The patient and I specifically discussed risk factors for COVID19. These risks include, but are not limited to age greater than 60, heart or lung disease, diabetes, immunosuppression, and travel. We also discussed NSAIDs may worsen COVID19 infection or symptoms. Patient should not use NSAIDs to treat COVID19 signs or symptoms. Patient was also informed that any type of corticosteroid of any form (oral or injection) will decrease the patient's immune system response and may increase the likelihood of COVID19 infection [address] symptoms[address]. Medina has reviewed this note and agrees with this plan of care. This note was dictated using voice recognition software and make contain errors or omissions. [facility] History I have reviewed the patient's past medical history: Yes *Have you ever received a pneumonia vaccine?: Yes *Have you received a flu vaccine this season?: Yes - *Social History *Occupational Status:: other *Travel in the last 8 weeks: None Family Hx:: Non-contributory
== END ==
PROVIDERS: PCP Family Medicine; Visit Provider Clinical Nurse Specialist Family Health
DX: M51.16 Intervertebral disc disorders with radiculopathy, lumbar region (principal)
CPT/HCPCS: 99212

== ENCOUNTER → 2020-09-14 09:20 | Outpatient (POV) | payer MEDICARE, MEDICAID, SELFPAY ==
--- NOTE | 2020-09-14 09:51 | HMH.PAINSOAP ---
[facility] Pain Management SOAP Note Subjective:: Patient is a pleasant 74-year-old white female who presents today for medication refills. She has been treated for chronic low back pain with lumbar radiculopathy symptoms. She has managed with [place] 10 mg 1 tablet p.o. four times daily and gabapentin 300 g 1 tablet p.o. three times daily. Patient says she was notified by her procedure manager recently that she is in end-stage COPD. She does use chronic O2. Patient says her pain is progressively worsening. Patient says she understands she cannot increase her medication regimen. She is inquiring about possible topical creams as well at [facility]. Patient has not had any recent imaging. She does rate her pain a 7 out of 10 today. She says that she is having frequent falls to the point that she is unable to feel her legs and falls often. She says the pain radiates down her leg causing numbness and tingling. Review of Systems General: No recent weight changes, no fever, no sleep disturbances Respiratory: No cough, no shortness of air, no recurring pulmonary infections Cardiovascular/peripheral vascular: No chest pain, no palpitations, no edema, no shortness of breath Gastrointestinal: No new onset incontinence, normal bowel movements reported Genitourinary: No new onset incontinence Musculoskeletal: Low back pain with radiation into legs. Psychiatric: Normal mood/affect Neurological: [Denies weakness in extremities], [denies balance issues] Objective:: Physical exam General: Alert and oriented x3, no acute distress, pleasant and cooperative, [on room air] Lungs: Respirations even and unlabored, symmetrical chest expansion Eyes: PERRL Musculoskeletal: Flexion and extension of lumbar spine somewhat guarded secondary to pain, deep tendon reflexes normal, strength in upper and lower extremities [5/5], [abnormal gait noted] Neurological: Speech clear, equipment sales specialist equal, no gross sensory deficit Assessment:: Degenerative Disc Disease Lumbar spine with lumbar radiculopathy Plan:: We will refill the patient's [place] 10 mg 1 tablet p.o. four times daily and gabapentin 3 mg 1 tablet p.o. three times daily. Patient I did discuss compounding cream. We will start her on a compounding cream to see if this gives her relief. Patient is also not had any recent imaging. I believe the patient would benefit from a lumbar MRI to determine if she has had any progressive disease to her spine. She is exhibiting neurogenic claudication type symptoms. We will send her for the MRI and see her back afterwards to discuss a further plan. We will give the patient 3 months worth of medication. She has been instructed to contact clinic if she has any concerns before her next appointment. The patient and I specifically discussed risk factors for COVID19. These risks include, but are not limited to age greater than 60, heart or lung disease, diabetes, immunosuppression, and travel. We also discussed NSAIDs may worsen COVID19 infection or symptoms. Patient should not use NSAIDs to treat COVID19 signs or symptoms. Patient was also informed that any type of corticosteroid of any form (oral or injection) will decrease the patient's immune system response and may increase the likelihood of COVID19 infection and symptoms[address]. Medina has reviewed this note and agrees with this plan of care. This note was dictated using voice recognition software and make contain errors or omissions. [facility] History I have reviewed the patient's past medical history: Yes *Have you ever received a pneumonia vaccine?: Yes *Have you received a flu vaccine this season?: Yes - *Social History *Occupational Status:: other *Travel in the last 8 weeks: None Family Hx:: Non-contributory
[2020-09-14 10:33] VITALS: BP 173/99; PULSE 62; RESP 24; TEMP 36.4; O2SAT 91; BMI 17.6
== END ==
PROVIDERS: PCP Family Medicine; Visit Provider Clinical Nurse Specialist Family Health
DX: M51.16 Intervertebral disc disorders with radiculopathy, lumbar region (principal)
CPT/HCPCS: 99212

== ENCOUNTER → 2020-09-25 14:36 | Outpatient (CLI) | payer MEDICARE, MEDICAID, SELFPAY ==
--- NOTE | 2020-09-25 14:38 | MR_ITS ---
PROCEDURE: MR LUMBAR SPINE WO CON (MRI 3D myelogram image set including volume rendering image set.) Referring Doctor: Rachelle Herrera Patient Age:75Y CLINICAL INDICATION: BACK PAIN Low back pain and bilateral leg pain tingling numbness worse left side COMPARISON: No exams were available for comparison TECHNIQUE: Standard multiplanar multiecho sequences are performed without contrast. 3-D MIP and myelographic images are also rendered and reviewed 3D myelogram image set volume rendering images included FINDINGS: The lumbar vertebral bodies intact no compression fracture or lesions L5/S1. Disc space well maintained but intact. Mild facet hypertrophy L4/5. Mild disc space narrowing. And disc bulge. Prominent facet and ligament flavum hypertrophy. The combination of features results and moderate, Moderately Pronounced Central Canal Spinal Stenosis, along with recess and foraminal stenosis/encroachment bilaterally L3/4. Mild disc space narrowing. Mild diffuse disc bulge. Moderate facet hypertrophy . Combination of features yield mild/moderate central canal stenosis L2/3 of mild disc space narrowing. Mild disc bulge, most evident at foramen. Mild facet hypertrophy. Overall mild bilateral foraminal encroachment L1/2 disc space fairly well maintained. Only mild disc bulge most evident at left foramen. Mild facet hypertrophy T12/L1 disc intact T11/12 disc intact 3D MR myelogram image set nicely demonstrates the pronounced spinal stenosis at L4/5 level. IMPRESSION: Multilevel degenerative changes lower lumbar spine Degenerative disc changes along with facet hypertrophy. L4/5 Pronounced Spinal Stenosis at this level, with bilateral foraminal encroachment.. Most significant findings at this L4/5 level L3/4. Mild spinal stenosis mild disc bulge mild bilateral foraminal encroachment but L2/3 and L1/2 minimal disc bulge at foramen, yield mild bilateral foraminal encroachment Dictated by: Moi Villasenor MD 09/30/2020 11:02 Moi Villasenor MD in [place] 09/30/2020 11:02
== END ==
PROVIDERS: PCP Family Medicine; Visit Provider Clinical Nurse Specialist Family Health
DX: M54.5 Low back pain (principal)
CPT/HCPCS: 72148; 76376

== ENCOUNTER → 2020-10-02 09:04 | Outpatient (POV) | payer MEDICARE, MEDICAID, SELFPAY ==
--- NOTE | 2020-10-02 09:11 | P.CONS_ITS ---
[facility] Pain Management SOAP Note Subjective:: Patient is a pleasant 75-year-old white female who presents today for medication refills. She is being treated for chronic low back pain with lumbar radiculopathy symptoms. Her MRI showed ligamentum flavum hypertrophy however she is not a candidate for minimally invasive lumbar decompression or any interventions at this time. She has been diagnosed with end-stage COPD and is on blood thinner. She is currently on [place] 10 mg 1 tab p.o. 4 times daily and gabapentin 300 mg 1 tab p.o. 3 times daily. She is doing well with this medication regimen she rates her pain a 5 out of 10. [facility] #[id number] reviewed and appropriate. ROS General: no recent weight change, no fever, no sleep disturbances Respiratory: Home O2 use Cardiovascular/Peripheral Vascular: No chest pain, No palpitations, no edema, no shortness of breath. Gastrointestinal: no new onset incontinence, normal bowel movements reported Genitourinary: no new onset incontinence Musculoskeletal: Back pain, leg pain Psychiatric: normal mood/ affect, Neurological: [denies new onset weakness in extremities], [denies new onset balance issues] Objective:: Physical Exam General: Alert and oriented x3, no acute distress, pleasant and cooperative, [on room air] Lungs: Resps E/U, Symmetrical chest expansion, Eyes: PERRL Musculoskeletal: Flexion and extension of lumbar spine somewhat guarded secondary to pain, deep tendon reflexes normal, strength in upper and lower extremities [5/5], [abnormal gait noted] Neurological: speech clear, bone grinder equal, no gross sensory deficits Assessment:: Degenerative disc disease lumbar spine lumbar radiculopathy, spinal stenosis with neurogenic claudication Plan:: We will continue the [place] 10 mg 1 tab p.o. 4 times daily gabapentin 300 mg 1 tab p.o. 3 times daily. Patient will follow up with us in 3 months. She has been instructed to call our office if she has any issues prior to her next appointment. Dr. Medina has reviewed this note and agrees with this plan of care. This note was dictated using voice recognition software and may contain errors or omissions Patient has been prescribed a controlled substance after being counseled on the medication, medication safety, and possible side effects. [facility] report has been obtained and reviewed prior to prescription and found to be appropriate. Opioid contract was reviewed and signed by the patient, and that they have agreed to all of the terms set forth by our compliance program. [facility] History I have reviewed the patient's past medical history: Yes *Have you ever received a pneumonia vaccine?: Yes *Have you received a flu vaccine this season?: Yes - *Social History *Occupational Status:: retired *Travel in the last 8 weeks: None Family Hx:: Non-contributory
[2020-10-02 09:33] VITALS: BP 125/74; PULSE 74; RESP 18; TEMP 36.2; O2SAT 98; BMI 17.6
== END ==
PROVIDERS: PCP Family Medicine; Visit Provider Clinical Nurse Specialist Family Health
DX: M51.16 Intervertebral disc disorders with radiculopathy, lumbar region (principal); M48.062 Spinal stenosis, lumbar region with neurogenic claudication
CPT/HCPCS: 99212; G0463

== ENCOUNTER → 2021-01-01 09:22 | Outpatient (POV) | payer MEDICARE, MEDICAID, SELFPAY ==
[2021-01-01 09:23] VITALS: BP 135/78; PULSE 89; RESP 22; TEMP 36.8; O2SAT 98; BMI 17.7
--- NOTE | 2021-01-01 09:44 | HMH.PAINSOAP ---
[facility] Pain Management SOAP Note Subjective:: Patient is a pleasant 75-year-old white female who presents today for medication refills. She is being treated for chronic low back pain with lumbar radiculopathy symptoms. She also has spinal stenosis. She is currently on [place] 10 mg 1 p.o. 4 times daily and gabapentin 300 mg 1 tab p.o. 3 times daily. She rates her pain today 7 out of 10. [facility] #[id number] reviewed and appropriate. Patient is having a lot of difficulty with breathing. Her primary care has been changing her medication she is going to be starting Chantix and has been put on Xanax 0.25 mg a day. I discussed with her to just be aware of the potential interaction between her Xanax and her opioid but her primary care physician is also aware of the medications that she is on. Patient recently had an incident where her oxygen dropped to below 70. ROS General: no recent weight change, no fever, no sleep disturbances Respiratory: Shortness of air Cardiovascular/Peripheral Vascular: No chest pain, No palpitations, no edema, no shortness of breath. Gastrointestinal: no new onset incontinence, normal bowel movements reported Genitourinary: no new onset incontinence Musculoskeletal: Back pain, leg pain Psychiatric: normal mood/ affect, [denies depression], [denies anxiety] Neurological: [denies new onset weakness in extremities], [denies new onset balance issues] Objective:: Physical Exam General: Alert and oriented x3, no acute distress, pleasant and cooperative, [on room air] Lungs: Resps E/U, Symmetrical chest expansion, Eyes: PERRL Musculoskeletal: Flexion and extension of lumbar spine somewhat guarded secondary to pain, deep tendon reflexes normal, strength in upper and lower extremities [5/5], [abnormal gait noted] Neurological: speech clear, director quality systems equal, no gross sensory deficits Assessment:: Degenerative disc disease lumbar spine lumbar radiculopathy, spinal stenosis with neurogenic claudication Plan:: We will continue the patient's [place] and gabapentin. We will see her back in 3 months. At this time as long as her primary care is aware of her medication regimen I believe her being on the Xanax will benefit her breathing. She will be monitored by her primary care physician. She has been instructed to contact our office if she has any issues prior to her next appointment. Dr. Medina has reviewed this note and agrees with this plan of care. This note was dictated using voice recognition software and may contain errors or omissions [facility] History I have reviewed the patient's past medical history: Yes *Have you ever received a pneumonia vaccine?: Yes *Have you received a flu vaccine this season?: Yes - *Social History *Occupational Status:: retired *Travel in the last 8 weeks: None Family Hx:: Non-contributory
== END ==
PROVIDERS: Visit Provider Clinical Nurse Specialist Family Health
DX: M51.16 Intervertebral disc disorders with radiculopathy, lumbar region (principal); M48.062 Spinal stenosis, lumbar region with neurogenic claudication
CPT/HCPCS: 99212; G0463

== ENCOUNTER → 2021-04-02 08:49 | Outpatient (POV) | payer MEDICARE, MEDICAID, SELFPAY ==
[2021-04-02 08:59] VITALS: BP 151/49; PULSE 63; RESP 18; O2SAT 94; BMI 17.6
--- NOTE | 2021-04-02 09:03 | P.CONS_ITS ---
[facility] Pain Management SOAP Note Subjective:: Patient is a 75-year-old white female who presents today for follow-up and for medication refills. The patient has been treated for degenerative disc disease lumbar spine with lumbar radiculopathy symptoms and spinal stenosis with neurogenic claudication symptoms. She is managed in the clinic with [place] 10 mg 1 tablet p.o. 4 times daily as well as gabapentin 300 mg 1 tablet 3 times daily. Her Felix #[id number] has been reviewed and is appropriate. Drug screen is appropriate. Patient's morphine equivalent is 40. She has end-stage COPD. She does use chronic oxygen. Her daughter reports that she has had difficulty getting to and from appointments and is concerned that that she will have to come in monthly. We did discuss possible hospice versus palliative treatment so that she does not have to return to the clinic monthly. Her primary care recently put her on Xanax 0.25 mg daily. Patient is aware of high risk for oversedation with medications we are prescribing her along with medication prescribed to her by her primary care provider Patient rates her pain a 6 out of 10. Review of Systems General: No recent weight changes, no fever, no sleep disturbances Respiratory: Chronic shortness of air, no recurring pulmonary infections Cardiovascular/peripheral vascular: No chest pain, no palpitations, no edema, no shortness of breath Gastrointestinal: No new onset incontinence, normal bowel movements reported Genitourinary: No new onset incontinence Musculoskeletal: Chronic low back pain Psychiatric: Normal mood/affect Neurological: [Denies weakness in extremities], [denies balance issues] Objective:: Physical exam General: Alert and oriented x3, no acute distress, pleasant and cooperative, [on room air] Lungs: Respirations even and unlabored, symmetrical chest expansion Eyes: PERRL Musculoskeletal: Flexion and extension of lumbar spine somewhat guarded secondary to pain, deep tendon reflexes normal, strength in upper and lower extremities [5/5], [abnormal gait noted] Neurological: Speech clear, wood boat builder supervisor equal, no gross sensory deficit Assessment:: Degenerative disc disease lumbar spine with lumbar radiculopathy symptoms, spinal stenosis with neurogenic claudication symptoms Plan:: We will refill the patient's [place] 10 mg 1 tablet p.o. 4 times daily and gabapentin 300 mg 1 tablet p.o. 3 times daily. For this visit, we will give the patient 2 months while she is able to find other accommodations to receiving her medication in her home. She and her daughter will discuss possible hospice versus palliative care. Patient has been instructed to contact the clinic with any concerns before the next appointment. Dr. Medina has reviewed this note and agrees with this plan of care. This note was dictated using voice recognition software and make contain errors or omissions. [facility] History I have reviewed the patient's past medical history: Yes *Have you ever received a pneumonia vaccine?: Yes *Have you received a flu vaccine this season?: Yes - *Social History Smoking Status: Former smoker Alcohol Intake: never *Occupational Status:: unemployed *Travel in the last 8 weeks: None Family Hx:: Non-contributory
== END ==
PROVIDERS: Visit Provider Clinical Nurse Specialist Family Health
DX: M51.16 Intervertebral disc disorders with radiculopathy, lumbar region (principal); M48.062 Spinal stenosis, lumbar region with neurogenic claudication
CPT/HCPCS: 99212; G0463

== ENCOUNTER 2021-04-02 09:17 | Emergency (ER) | payer MEDICARE, MEDICAID, SELFPAY ==
[2021-04-02 09:17] VITALS: BP 140/88; PULSE 74; RESP 22; TEMP 36.7; O2SAT 99; BMI 17.6
[2021-04-02 09:20] VITALS: BP 159/68; PULSE 60; O2SAT 99
--- NOTE | 2021-04-02 09:29 | HMH.EDGENADL ---
ED Disposition Clinical Impression: COPD (chronic obstructive pulmonary disease) Qualifiers: Emphysema type: other Disposition: Home, Self-Care Condition on Discharge: Fair Instructions: DI for Chronic Obstructive Pulmonary Disease - Critical Care Critical Care Time: No Attestation: On , the high probability of a clinically significant, sudden or life threatening deterioration of the following system(s) required my full and direct attention, intervention and personal management. The time I documented below is in addition to time spent performing reported procedures but includes the following listed in this critical care notation. Medical Decision Making - Medical Records Medical records reviewed: Yes: I reviewed the patient's medical records. - Felix Inquiry Pt receiving controlled substance: No Vital Signs: 04/02/21 09:17 Temperature 98.1 F Temperature Source Oral Pulse Rate [Right] 74 Respiratory Rate 22 Blood Pressure [Right Arm] 140/88 Blood Pressure Mean [Right Arm] 105 02 Sat by Pulse Oximetry 99 Oxygen Delivery Method Room Air Oxygen Flow Rate (LPM) 4 Medical Decision Narrative: Patient appears chronically ill. Presents because she could not turn her oxygen on and she was over in the area at a doctor's office. With her home oxygen, her symptoms improved. She reports no new symptoms, signs of pneumonia, chest pain or difficulty breathing at this time. She does have an abnormal lung exam which may be normal for her. She is advised that if she does become symptomatic or has any changes that she should be seen immediately. Patient's home oxygen fixed and patient was discharged. General Adult HPI - General Chief complaint: Shortness of Breath/Dyspnea Stated complaint: SOB Time Seen by Provider: 04/02/21 09:20 Mode of Arrival: Family Vehicle Limitations: No Limitations Description of Symptoms (Recalled from ER Triage Doc. by RN): Patient c/o shortness of breath after her oxygen tank becoming empty thirty minutes prior to arrival. Pt reports wearing home 02 at all times. Pt reports having a second O2 tank in the vehicle she was in but neither her or the rear load truck driver of the vehicle could turn the O2 tank on. Pt denies any SOB prior to O2 tank becoming empty. - History of Present Illness HPI narrative: Patient is a 75-year-old female with history of COPD and CHF on 4 L of oxygen at home who was at home pain management appointment this morning could not get her oxygen to work so she came to the emergency department because she was feeling short of air. She was 84% on room air and when placed on home oxygen it did come up. She reports feeling short of breath when not using oxygen, however prior to this has been feeling fine. Denies any new cough, chest pain, fever, lower extremity pain or swelling, vomiting or any other symptoms. She feels better now and reports that her symptoms have improved with the oxygen. - Related Data Home Medications Medication Instructions Recorded Confirmed Sertraline HCl [Zoloft 50mg tablet] 50 mg PO DAILY 02/02/18 09/14/20 ALPRAZolam [Alprazolam 0.25mg 0.25 mg PO DAILY 03/01/19 09/14/20 Tab] Clopidogrel Bisulfate [Plavix 75mg 75 mg PO DAILY 03/01/19 09/14/20 Tab] Gabapentin [Neurontin 100mg 100 mg PO TID 09/14/20 09/14/20 cap] Hydrocodone/Acetaminophen [Craig 1 tab PO QID 09/14/20 09/14/20 10-325 Tablet] Previous Rx's Medication Instructions Recorded Gabapentin [Neurontin 300mg 300 mg PO TID 30 Days #90 cap 09/15/20 capsule] Hydrocodone/Acetaminophen 1 each PO QID #120 tab 09/15/20 [Hydrocodone-Acetamin 10-325 mg] Hydrocodone/Acetaminophen [Craig 1 tab PO QID #120 tab 09/15/20 10-325 Tablet] Hydrocodone/Acetaminophen 1 each PO QID #120 tab 10/06/20 [Hydrocodone-Acetamin 10-325 mg] Hydrocodone/Acetaminophen [Craig 1 tab PO QID #120 tab 10/06/20 10-325 Tablet] Gabapentin [Neurontin 300mg 300 mg PO TID #90 cap
[2021-04-02 09:30] VITALS: BP 145/58; PULSE 66; O2SAT 98
[2021-04-02 10:00] VITALS: BP 137/58; PULSE 61; RESP 18; TEMP 36.7; O2SAT 99
== END 2021-04-02 10:06 | disposition home or self-care (01) ==
PROVIDERS: Emergency Provider Emergency Medicine; PCP Family Medicine
DX: J44.9 Chronic obstructive pulmonary disease, unspecified (principal); I50.9 Heart failure, unspecified; Z88.0 Allergy status to penicillin; Z88.2 Allergy status to sulfonamides; Z79.899 Other long term (current) drug therapy
CPT/HCPCS: G0463; 99212; 99281

== ENCOUNTER → 2021-05-03 12:52 | Outpatient (POV) | payer MEDICARE, MEDICAID, SELFPAY ==
[2021-05-03 13:10] VITALS: BP 141/88; PULSE 92; RESP 18; O2SAT 96; BMI 16.4
--- NOTE | 2021-05-03 13:39 | HMH.PAINSOAP ---
[facility] Pain Management SOAP Note Subjective:: Patient is a pleasant 75-year-old white female who presents today for follow-up and medication refills. She is currently being treated for degenerative disc disease of lumbar spine with lumbar radiculopathy, spinal stenosis and neurogenic claudication symptoms. Patient is also diagnosed with end-stage COPD, she does use chronic oxygen. Her daughter reports that they have difficulty getting her to and from appointments Covid numbers increasing there is concern with monthly prescription refill appointments. She is rating her pain today a 5 out of 10. She is currently managed with gabapentin 300 mg 3 times a day and [place] 10/325 4 times a day. The patient denies any side effects to this medication. She denies any changes to the location or type of pain she experiences. Her Felix number is [id number] she has an active morphine equivalent of 40. Review of Systems General: No recent weight changes, no fever, no sleep disturbances Respiratory: No cough, no shortness of air, no recurring pulmonary infections Cardiovascular/peripheral vascular: No chest pain, no palpitations, no edema, no shortness of breath Gastrointestinal: No new onset incontinence, normal bowel movements reported Genitourinary: No new onset incontinence Musculoskeletal: [] Psychiatric: [Normal mood/affect] Neurological: [Denies weakness in extremities], [denies balance issues] Objective:: Physical exam General: Alert and oriented x3 no acute distress, pleasant and cooperative, [on room air] Lungs: Respirations even and unlabored, symmetrical chest expansion Eyes: PERRL Musculoskeletal: Flexion and extension of the lumbar spine nonguarded, deep tendon reflexes normal, strength in upper and lower extremities 5 out of 5 normal gait noted Neurological: Speech clear, solid waste technician equal, no gross sensory deficit Assessment:: Degenerative disc disease of the lumbar spine, lumbar radiculopathy, spinal stenosis, neurogenic claudication Plan:: We will continue the patient's [place] 10/325 and gabapentin 100 mg 3 times daily. The patient is having difficulty making month prescription refill appointments, we will schedule the patient's next appointment via telehealth for prescription refills. We will provide the patient with 1 month worth of medication refills today. She is welcome to contact the clinic if she has any questions or concerns prior to her next appointment date. Dr. Medina has reviewed this note and agrees with this plan of care. This note was dictated using voice recognition software and make contain errors or omissions. [facility] History *Have you ever received a pneumonia vaccine?: Yes *Have you received a flu vaccine this season?: No - *Social History Smoking Status: Former smoker Alcohol Intake: never *Occupational Status:: unemployed *Travel in the last 8 weeks: None Family Hx:: Non-contributory
== END ==
PROVIDERS: Visit Provider Family Medicine
DX: M51.16 Intervertebral disc disorders with radiculopathy, lumbar region (principal); M48.062 Spinal stenosis, lumbar region with neurogenic claudication
CPT/HCPCS: 99212; G0463

== ENCOUNTER → 2021-05-31 09:45 | Outpatient (POV) | payer MEDICARE, MEDICAID, SELFPAY ==
--- NOTE | 2021-05-31 09:54 | P.CONS_ITS ---
[facility] PM Virtual Visit SOAP Consent for virtual visit:: With the recent concerns about the COVID-19, we are trying to minimize exposure to you by shifting to telehealth appointments whenever possible. It restricts me from seeing you in person, but the trade off is protecting you during this pandemic. Can you see and hear me okay, and do you consent to this option? If not, I would be happy to see if we can reschedule your appointment in the future, when feasible. Has patient consented to this virtual visit?: Yes Subjective:: Patient is a pleasant 75 old white female who has agreed to a virtual visit today. Due to the pandemic and the patient's comorbidities, she and I have agreed to do a virtual visit today for medication refill. Patient is being treated in our clinic for degenerative disc disease lumbar spine with lumbar radiculopathy symptoms, spinal stenosis and neurogenic claudication symptoms. Patient does have end-stage COPD and does use chronic oxygen. Patient is having difficulty getting to and from appointments as well. She does rate her pain a 7 or an 8 out of 10 today. She recently fell and did have a fracture to her lower extremity. She is being followed by Dr. Sanjay Luis. She did undergo surgical intervention. Patient says her medication is not currently helping with this pain. She says Dr. Sanjay Luis was not able to give her any other medication due to patient being seen in our clinic. She is managed with [place] 10 mg 1 tablet p.o. 4 times daily and gabapentin 300 mg 1 tablet p.o. 3 times daily. Patient does not have side effects with the medicine. [facility] #[id number] has been reviewed. It is appropriate. Morphine equivalent is 40. Review of Systems General: No recent weight changes, no fever, no sleep disturbances The Cardiovascular/peripheral vascular: No chest pain, no palpitations, no edema, no shortness of breath Musculoskeletal: Low back pain and leg pain Psychiatric: [Normal mood/affect] Neurological: [Denies weakness in extremities], [denies balance issues] Objective:: Psychiatric: Judgment and insight intact. Mood normal, affect appropriate Assessment:: Degenerative disc disease lumbar spine with lumbar radiculopathy symptoms, spinal stenosis with neurogenic claudication symptoms, acute fracture lower extremity Plan:: We will refill the patient's [place] 10 mg 1 tablet p.o. 4 times daily and gabapentin 300 mg 1 tablet p.o. 3 times daily. The patient has been advised that Dr. Sanjay Luis can change the patient's medication acutely due to her recent surgical procedure for a fracture of her lower extremity. She has been advised to hold her [place] while taking any other medication prescribed. She and her family are in agreement. Otherwise, we will continue her on her gabapentin 301 tablet p.o. 3 times daily and [place] 10 mg 1 tablet p.o. 4 times daily. She has been advised to contact clinic if she has any concerns before next appointment. Patient has been instructed to contact the clinic with any concerns before the next appointment. Dr. Medina has reviewed this note and agrees with this plan of care. This note was dictated using voice recognition software and make contain errors or omissions. Time In:: 09:45 Time Out:: 09:55 [facility] History I have reviewed the patient's past medical history: Yes *Have you ever received a pneumonia vaccine?: Yes *Have you received a flu vaccine this season?: No - *Social History Smoking Status: Former smoker Alcohol Intake: never *Occupational Status:: unemployed *Travel in the last 8 weeks: None Family Hx:: Non-contributory
== END ==
PROVIDERS: Visit Provider Clinical Nurse Specialist Family Health
DX: M51.16 Intervertebral disc disorders with radiculopathy, lumbar region (principal); M48.062 Spinal stenosis, lumbar region with neurogenic claudication
CPT/HCPCS: 99212; G0463